=== PATIENT | female | born 1985 | race Caucasian/White ===

== ENCOUNTER 2018-08-20 19:05 | Emergency (ER) | payer SELFPAY ==
[~2018-08-20] VITALS: Ht 170.2 cm; Wt 91.9 kg
[2018-08-20 19:27] VITALS: BP 106/61; Ht 170.2 cm; Wt 91.9 kg
== END 2018-08-20 20:39 | disposition left against medical advice (07) ==
LOC: ED 19:05
DX: Z53.21 Procedure and treatment not carried out due to patient leaving prior to being seen by health care provider (principal)